=== PATIENT | female | born 1970 | race American Indian/Alaskan Native ===

== ENCOUNTER 2016-10-07 16:42 | Outpatient (CLI) | payer MEDICAID ==
--- NOTE | 2016-10-11 11:17 | Vascular Lab Report ---
Right Lower Extremity Venous Duplex Study: Reason for Exam: Pain and swelling of the right lower extremity. Comments on the Right: All deep veins visualized are freely compressible without evidence of internal echogenicity. Flow is spontaneous and phasic throughout. No evidence of acute or chronic thrombus is seen in any of the vessels visualized. Superficial thrombophlebitis is noted in the very distal greater saphenous vein at the ankle. Comments on the Left: A limited duplex study was done of the proximal veins of the left lower extremity. All veins visualized are freely compressible without evidence of internal echogenicity. Flow is spontaneous and phasic throughout. No evidence of acute or chronic thrombus is seen in any of the vessels visualized. Impression: Superficial thrombophlebitis in the right lower extremity.
== END 2016-10-07 16:43 | disposition home or self-care (01) ==
LOC: VAS 16:42
PROVIDERS: ATTEND Podiatrist Foot & Ankle Surgery
DX: I80.01 Phlebitis and thrombophlebitis of superficial vessels of right lower extremity (principal); I10 Essential (primary) hypertension; M06.9 Rheumatoid arthritis, unspecified